=== PATIENT | female | born 1945 | race American Indian/Alaskan Native ===

== ENCOUNTER 2016-08-19 22:20 | Emergency (ER) | payer MEDICARE ==
[2016-08-19 23:21] VITALS: BP 183/81
[2016-08-20 00:02] LABS: Basophils % (Auto) 0.7 % (0.0-1.8); Eosinophils % (Auto) 1.5 % (0.0-4.3); Hematocrit 37.2 % (30.3-42.9); Hemoglobin 12.2 gm/dl (10.1-14.3); Mean Corpuscular HGB Conc 33 % (30-34); Mean Corpuscular Hemoglobin 29 pg (28-32); Mean Corpuscular Volume 88 fl (79-97); Platelet Count 183 K/mm3 (140-440); Red Blood Count 4.25 M/mm3 (3.65-5.03); Red Cell Distribution Width 13.8 % (13.2-15.2); White Blood Count 7.7 K/mm3 (4.5-11.0)
[2016-08-20 00:19] LABS: Anion Gap 20 mmol/L; BUN/Creatinine Ratio 26.25; Blood Urea Nitrogen 21 mg/dL (7-17); Calcium 9.7 mg/dL (8.4-10.2); Carbon Dioxide 23 mmol/L (22-30); Chloride 97.9 mmol/L (98-107); Glucose 227 mg/dL (65-100); Potassium 4.2 mmol/L (3.6-5.0); Sodium 137 mmol/L (137-145)
== END 2016-08-20 02:55 | disposition left against medical advice (07) ==
LOC: ED 22:20
DX: M25.511 Pain in right shoulder (principal); Z53.21 Procedure and treatment not carried out due to patient leaving prior to being seen by health care provider
CPT/HCPCS: 36415; 80048; 84484; 85025; 93005; 93010

== ENCOUNTER 2017-08-18 18:28 | Emergency (ER) | payer OTHER, MEDICARE ==
[2017-08-18] MEDS ORDERED: FLEXERIL PO ONE (20:23)
[2017-08-18] MEDS ORDERED: NORCO 5/325 PO ONE (20:23)
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
[2017-08-18 22:37] VITALS: BP 153/60
== END 2017-08-18 23:05 | disposition home or self-care (01) ==
LOC: ED 18:28
DX: S16.1XXA Strain of muscle, fascia and tendon at neck level, initial encounter (principal); M51.35 Other intervertebral disc degeneration, thoracolumbar region; E07.89 Other specified disorders of thyroid; V49.49XA Driver injured in collision with other motor vehicles in traffic accident, initial encounter; Y93.89 Activity, other specified; Y92.89 Other specified places as the place of occurrence of the external cause; Y99.8 Other external cause status
CPT/HCPCS: 72125; 72128; 72131